=== PATIENT | male | born 1950 | race Caucasian/White ===

== ENCOUNTER → 2017-03-05 | Outpatient (CLI) | payer OTHER, MEDICAID | LOC: BMCIMAGING 10:34 → EDSTATUS 10:38 | PROVIDERS: ATTEND Internal Medicine | DX: R05 Cough (principal); J98.4 Other disorders of lung ==

== ENCOUNTER → 2017-03-10 | Outpatient (CLI) | payer OTHER, MEDICAID | LOC: FCPNEURO 23:07 | PROVIDERS: ATTEND Student in an Organized Health Care Education/Training Program | DX: G47.33 Obstructive sleep apnea (adult) (pediatric) (principal); G47.31 Primary central sleep apnea ==